=== PATIENT | female | born 1955 | race Caucasian/White ===

== ENCOUNTER 2018-01-08 09:24 | Outpatient (REF) | payer OTHER, SELFPAY ==
[2018-01-08 18:53] LABS: ALT 31 U/L (12-78); AST 21 U/L (15-37); Albumin 3.8 g/dL (3.4-5.0); Alkaline Phosphatase 53 U/L (46-116); Anion Gap 7.2 mmol/L (3-11); BUN 14 mg/dL (7-18); Bilirubin, Total 0.4 mg/dL (0.2-1.0); CO2 29.8 mmol/L (21.0-32.0); CREATININE 0.92 mg/dL (0.55-1.02); Calcium 8.9 mg/dL (8.5-10.1); Chloride 107 mmol/L (98-107); Cholesterol 138 mg/dL (50-200); Glucose 104 mg/dL (70-100); HDL Cholesterol 34 mg/dL (40-60); LDL CHOLESTEROL 84 mg/dL (<100); Potassium 4.7 mmol/L (3.5-5.1); Sodium 144 mmol/L (136-145); TSH 1.17 uIU/mL (0.358-3.74); Total Protein 7.1 g/dL (6.4-8.2); Triglyceride 99 mg/dL (30-150)
== END 2018-01-08 09:44 ==
LOC: NCHCN 09:24
PROVIDERS: PCP Physician Assistant; Visit Provider Nurse Practitioner Family
DX: E78.5 Hyperlipidemia, unspecified (principal); B19.20 Unspecified viral hepatitis C without hepatic coma
CPT/HCPCS: 80053; 80061; 83721; 84443

== ENCOUNTER 2018-10-24 11:05 | Outpatient (REF) | payer OTHER, SELFPAY ==
[2018-10-24 20:10] LABS: ALT 29 U/L (12-78); AST 19 U/L (15-37); Alkaline Phosphatase 44 U/L (46-116); Bilirubin, Direct 0.07 mg/dL (0.00-0.20); Bilirubin, Total 0.3 mg/dL (0.2-1.0); Total Protein 7.4 g/dL (6.4-8.2)
[2018-10-28 10:42] LABS: Hepatitis C Ab w Rflx HCV PCR Reactive (NEGAT)
== END 2018-10-24 11:25 ==
LOC: NCHCN 11:05
PROVIDERS: PCP Nurse Practitioner Family; Visit Provider Nurse Practitioner Family
DX: B19.20 Unspecified viral hepatitis C without hepatic coma (principal)
CPT/HCPCS: 80076; 86803; 87522

== ENCOUNTER 2019-10-21 23:36 | Outpatient (REF) | payer OTHER, SELFPAY ==
[2019-10-21 20:06] LABS: ALT 33 U/L (14-59); AST 21 U/L (15-37); Albumin 4.1 g/dL (3.4-5.0); Alkaline Phosphatase 45 U/L (46-116); Bilirubin, Total 0.2 mg/dL (0.2-1.0); Calculated LDL 81 mg/dL (<100); Cholesterol 141 mg/dL (<200); HDL Cholesterol 32 mg/dL (40-60); Total Protein 7.3 g/dL (6.4-8.2); Triglyceride 141 mg/dL (<150)
[2019-10-21 23:13] LABS: Bilirubin, Direct 0.08 mg/dL (0.00-0.20)
[2019-10-23 10:46] LABS: Hepatitis C Ab w Rflx HCV PCR Reactive (Negative)
[2019-10-24 14:16] LABS: HCV RNA Qualitative Detected (Undetected)
== END 2019-10-21 23:56 ==
LOC: NCHCN 23:36
PROVIDERS: PCP Nurse Practitioner Family; Visit Provider Nurse Practitioner Family
DX: E78.5 Hyperlipidemia, unspecified (principal); B19.20 Unspecified viral hepatitis C without hepatic coma
CPT/HCPCS: 80061; 80076; 86803; 87522

== ENCOUNTER 2019-12-26 15:34 | Outpatient (REF) | payer OTHER, SELFPAY ==
[2019-12-26 20:54] LABS: HCT 41.2 % (36.0-46.0); HGB 13.5 g/dL (11.2-15.7); MCHC 32.8 % (32.0-36.0); MCV 91.6 fL (80-95); MPV 11.4 fL (8.0-11.0); Platelet Count 265 10^3/uL (130-400); RDW 12.5 % (11.7-14.6); RDW-SD 41.9 fL; WBC 6.88 10^3/uL (4.4-10.8)
[2019-12-26 21:13] LABS: ALT 31 U/L (14-59); AST 21 U/L (15-37); Albumin 3.7 g/dL (3.4-5.0); Alkaline Phosphatase 40 U/L (46-116); Anion Gap 7.6 mmol/L (3-11); BUN 14 mg/dL (7-18); Bilirubin, Total 0.2 mg/dL (0.2-1.0); CO2 26.4 mmol/L (21.0-32.0); CREATININE 0.84 mg/dL (0.55-1.02); Calcium 9.1 mg/dL (8.5-10.1); Chloride 107 mmol/L (98-107); Glucose 117 mg/dL (74-106); Potassium 4.2 mmol/L (3.5-5.1); Sodium 141 mmol/L (136-145); Total Protein 6.9 g/dL (6.4-8.2)
[2019-12-29 09:10] LABS: HBs Antibody, Quant 106.4 mIU/mL (See Note); Hepatitis B Surface Ab Positive (See Note)
[2019-12-29 09:21] LABS: Hepatitis B Surface Ag Negative (Negative)
[2019-12-29 10:09] LABS: HIV-1/2 Ag & Ab Screen Negative (Negative)
[2019-12-29 11:00] LABS: Hep A Total Ab w Rflx IgM Positive (Negative)
[2019-12-29 11:18] LABS: Hep B Core Antibody Positive (Negative)
[2019-12-30 15:24] LABS: Hep A Antibody IgM Negative (Negative)
[2019-12-31 09:48] LABS: HCV Genotype 2 (Undetected)
== END 2019-12-26 15:54 ==
LOC: NCHCN 15:34
PROVIDERS: PCP Nurse Practitioner Family; Visit Provider Family Medicine
DX: B19.20 Unspecified viral hepatitis C without hepatic coma (principal); Z11.4 Encounter for screening for human immunodeficiency virus [HIV]; D64.9 Anemia, unspecified
CPT/HCPCS: 80053; 85027; 86704; 86706; 86709; 87340; 87389; 87521

== ENCOUNTER 2020-03-04 22:14 | Outpatient (REF) | payer OTHER, SELFPAY ==
[2020-03-04 21:39] LABS: ALT 19 U/L (14-59); AST 15 U/L (15-37); Albumin 3.9 g/dL (3.4-5.0); Alkaline Phosphatase 53 U/L (46-116); Bilirubin, Direct 0.05 mg/dL (0.00-0.20); Bilirubin, Total 0.2 mg/dL (0.2-1.0); Total Protein 7.3 g/dL (6.4-8.2)
[2020-03-17 10:13] LABS: HCV RNA Qualitative Undetected (Undetected)
[2020-03-17 10:14] LABS: Hepatitis C Ab w Rflx HCV PCR Reactive (Negative)
== END 2020-03-04 22:34 ==
LOC: NCHCN 22:14
PROVIDERS: PCP Nurse Practitioner Family; Visit Provider Nurse Practitioner Family
DX: B19.20 Unspecified viral hepatitis C without hepatic coma (principal); Z12.11 Encounter for screening for malignant neoplasm of colon; Z12.39 Encounter for other screening for malignant neoplasm of breast
CPT/HCPCS: 80076; 86803; 87522

== ENCOUNTER 2020-06-21 20:03 | Outpatient (REF) | payer OTHER, SELFPAY ==
[2020-06-23 11:27] LABS: Hepatitis C Ab w Rflx HCV PCR Reactive (Negative)
[2020-06-24 14:30] LABS: HCV RNA Qualitative Undetected (Undetected)
== END 2020-06-21 20:04 | disposition home or self-care (01) ==
LOC: NCHCN 20:03
PROVIDERS: PCP Nurse Practitioner Family; Visit Provider Family Medicine
DX: Z86.19 Personal history of other infectious and parasitic diseases (principal)
CPT/HCPCS: 86803; 87522

== ENCOUNTER 2020-08-26 12:09 | Outpatient (REF) | payer OTHER, SELFPAY | END 2020-08-26 12:10 | disposition home or self-care (01) | LOC: NCHCN 12:09 | PROVIDERS: PCP Nurse Practitioner Family; Visit Provider Internal Medicine | DX: N39.0 Urinary tract infection, site not specified (principal); N89.8 Other specified noninflammatory disorders of vagina | CPT/HCPCS: 87086; 87480; 87510; 87660 ==

== ENCOUNTER 2024-02-19 12:19 | Outpatient (REF) | payer MEDICARE, SELFPAY ==
[2024-02-19 20:18] LABS: ALT 21 U/L (14-59); AST 16 U/L (15-37); Albumin 3.8 g/dL (3.4-5.0); Alkaline Phosphatase 61 U/L (46-116); Anion Gap 5.4 mmol/L (3-11); BUN 15 mg/dL (7-18); Bilirubin, Total 0.23 mg/dL (0.2-1.0); CO2 28.6 mmol/L (21.0-32.0); CREATININE 0.9 mg/dL (0.55-1.02); Calcium 9.3 mg/dL (8.5-10.1); Chloride 110 mmol/L (98-107); Estimated GFR 69.64 (mL/min/1.73m2); Glucose 100 mg/dL (74-106); Potassium 4.4 mmol/L (3.5-5.1); Sodium 144 mmol/L (136-145); TSH (W/Ref FT4) 0.77 uIU/mL (0.36-3.74); Total Protein 7.6 g/dL (6.4-8.2)
== END 2024-02-19 12:20 | disposition home or self-care (01) ==
LOC: NCHCN 12:19
PROVIDERS: PCP Nurse Practitioner Family; Visit Provider Nurse Practitioner Family
DX: E04.1 Nontoxic single thyroid nodule (principal)
CPT/HCPCS: 80053; 84443

== ENCOUNTER 2024-05-23 18:05 | Outpatient (REF) | payer MEDICARE, OTHER, SELFPAY ==
[2024-05-23 19:18] LABS: Abs Immature Grans 0.02 10^3/uL (0.0-0.06); Absolute Basophil Count 0.03 10^3/uL (0.0-0.2); Absolute Eosinophil Count 0.06 10^3/uL (0.0-0.7); Absolute Lymphocyte Count 1.41 10^3/uL (1.2-3.4); Absolute Monocyte Count 0.35 10^3/uL (0.1-0.8); Absolute Neutrophil Count 4.69 10^3/uL (1.2-6.7); Basophils % 0.5 %; Eosinophils % 0.9 %; HCT 41.5 % (36.0-46.0); HGB 13.8 g/dL (11.2-15.7); Immature Grans % 0.3 %; Lymphocytes % 21.5 %; MCH 30.3 pg (27.0-33.0); MCHC 33.3 % (32.0-36.0); MCV 91 fL (80-95); MPV 10.3 fL (8.0-11.0); Monocytes % 5.3 %; Neutrophils % 71.5 %; Platelet Count 282 10^3/uL (130-400); RBC 4.56 10^6/uL (3.93-5.22); RDW 12.4 % (11.7-14.6); RDW-SD 41.3 fL; WBC 6.56 10^3/uL (4.4-10.8)
[2024-05-23 19:36] LABS: ALT 24 U/L (14-59); AST 19 U/L (15-37); Albumin 3.9 g/dL (3.4-5.0); Alkaline Phosphatase 49 U/L (46-116); Anion Gap 2.6 mmol/L (3-11); BUN 15 mg/dL (7-18); Bilirubin, Total 0.22 mg/dL (0.2-1.0); CO2 31.4 mmol/L (21.0-32.0); CREATININE 0.9 mg/dL (0.55-1.02); Calcium 9.3 mg/dL (8.5-10.1); Chloride 108 mmol/L (98-107); Glucose 155 mg/dL (74-106); Potassium 3.8 mmol/L (3.5-5.1); Sodium 142 mmol/L (136-145); TSH 1.16 uIU/mL (0.36-3.74); Total Protein 7.2 g/dL (6.4-8.2); Troponin I 9 ng/L (<or=51)
== END 2024-05-23 18:06 | disposition home or self-care (01) ==
LOC: NCHCN 18:05
PROVIDERS: PCP Nurse Practitioner Family; Visit Provider Physician Assistant
DX: R00.0 Tachycardia, unspecified (principal)
CPT/HCPCS: 80053; 83735; 84443; 84484; 85025

== ENCOUNTER 2024-12-23 17:32 | Outpatient (REF) | payer MEDICARE, SELFPAY ==
[2024-12-23 19:12] LABS: Abs Immature Grans 0.05 10^3/uL (0.0-0.06); HCT 42.8 % (36.0-46.0); HGB 14.0 g/dL (11.2-15.7); Immature Grans % 0.7 %; MCH 29.7 pg (27.0-33.0); MCHC 32.7 % (32.0-36.0); MCV 91 fL (80-95); MPV 10.5 fL (8.0-11.0); Platelet Count 263 10^3/uL (130-400); RBC 4.71 10^6/uL (3.93-5.22); RDW 12.1 % (11.7-14.6); RDW-SD 39.9 fL; WBC 7.47 10^3/uL (4.4-10.8)
[2024-12-23 19:40] LABS: Iron 84 ug/dL (50-170); Total Iron Binding Capacity 281 ug/dL (250-450); Transferrin Sat 30 % (15-50)
[2024-12-23 19:41] LABS: ALT 24 U/L (14-59); AST 13 U/L (15-37); Albumin 3.9 g/dL (3.4-5.0); Alkaline Phosphatase 46 U/L (46-116); Anion Gap 6.9 mmol/L (3-11); BUN 17 mg/dL (7-18); Bilirubin, Total 0.4 mg/dL (0.2-1.0); CO2 29.1 mmol/L (21.0-32.0); Calcium 9.4 mg/dL (8.5-10.1); Calculated LDL 56 mg/dL (<100); Chloride 107 mmol/L (98-107); Cholesterol 114 mg/dL (<200); Estimated GFR 93.56 (mL/min/1.73m2); Ferritin 121 ng/mL (8-252); Glucose 105 mg/dL (74-106); HDL Cholesterol 43 mg/dL (>or=50); Potassium 4.4 mmol/L (3.5-5.1); Sodium 143 mmol/L (136-145); TSH (W/Ref FT4) 1.05 uIU/mL (0.36-3.74); Total Protein 7.5 g/dL (6.4-8.2); Triglyceride 75 mg/dL (<150)
== END 2024-12-23 17:33 | disposition home or self-care (01) ==
LOC: NCHCN 17:32
PROVIDERS: PCP Nurse Practitioner Family; Visit Provider Physician Assistant
DX: R53.83 Other fatigue (principal); E78.5 Hyperlipidemia, unspecified
CPT/HCPCS: 80053; 80061; 82728; 83540; 83550; 84443; 85025